=== PATIENT | female | born 1995 | race Caucasian/White ===

== ENCOUNTER 2018-07-06 11:29 | Emergency (ER) | END 2018-07-06 14:53 | disposition home or self-care (01) ==

== ENCOUNTER 2018-08-27 22:31 | Observation (INO) | END 2018-08-29 16:40 | disposition home or self-care (01) ==

== ENCOUNTER 2018-10-01 10:07 | Emergency (ER) | END 2018-10-01 13:04 | disposition home or self-care (01) ==

== ENCOUNTER 2019-03-15 20:39 | Emergency (ER) | payer OTHER ==
[~2019-03-15] VITALS: Ht 149.9 cm; Wt 74.9 kg
[~2019-03-15 20:39] MED LIST: ACET500C5 PO; ACYC400T2 PO; IBUP-1542 PO; ONDA4TAB14 PO
[2019-03-15 20:44] VITALS: Ht 149.9 cm; Wt 74.9 kg
[2019-03-15] MEDS: IBUPROFEN 600 MG TAB PO ONE ×2 (21:31→22:44)
--- NOTE | 2019-03-15 22:05 | ERD ---
ER Documentation Chief Complaint Chief Complaint vaginal bleeding x 2 weeks. denies HPI 24-year-old female presents with complaint of vaginal bleeding for the past 2 weeks. States that she started her period 2 weeks ago as well. In addition she states that her IUD came out on its own this past . This is a second time it has happened. States that she passed a clot today as well. States that she is been having some pelvic cramping as well. Denies any current pelvic cramping. States that she has been through 3 pads today. Denies any lightheadedness, dysuria, back pain, vomiting, fevers. ROS All systems reviewed and are negative except as per history of present illness. Medications Home Meds Active Scripts Medroxyprogesterone Acetate* (Provera*) 10 Mg Tablet, 10 MG PO DAILY for 5 Days, TAB Prov:MARA HOOKS 03/15/19 Ibuprofen* (Motrin*) 600 Mg Tab, 600 MG PO QAM for 6 Days, #30 TAB Prov:MARA HOOKS 03/15/19 Ondansetron (Ondansetron Odt) 4 Mg Tab.rapdis, 4 MG PO Q6H PRN for NAUSEA AND/OR VOMITING, #10 TAB Prov:RAJAN FONTANA PA-C 10/01/18 Acetaminophen* (Tylophen*) 500 Mg Capsule, 1 CAP PO Q6H PRN for PAIN AND OR ELEVATED TEMP, #30 CAP Prov:CYRUS GONZALEZ PA-C 07/06/18 Ibuprofen* (Motrin*) 600 Mg Tab, 600 MG PO Q6, #30 TAB Prov:CYRUS GONZALEZ PA-C 07/06/18 Acyclovir* (Acyclovir*) 400 Mg Tablet, 400 MG PO TID for 7 Days, TAB Prov:LAURITA ALVAREZ NP 04/15/15 Allergies Allergies: Coded Allergies: No Known Allergy (Unverified , 12/16/11) PMhx/Soc History of Surgery: Yes ( X1) Anesthesia Reaction: No Hx Neurological Disorder: No Hx Respiratory Disorders: No Hx Cardiac Disorders: No Hx Psychiatric Problems: No Hx Miscellaneous Medical Probl: No Hx Alcohol Use: No Hx Substance Use: Yes Hx Tobacco Use: No Smoking Status: Never smoker FmHx Family History: No diabetes, No coronary disease, No other Physical Exam Vitals Vital Signs Date Temp Pulse Resp B/P (MAP) Pulse Ox O2 O2 Flow FiO2 Time Delivery Rate 03/15/19 99.2 93 18 125/67 99 20:44 (86) Physical Exam Const: No acute distress Head: Atraumatic Eyes: Normal Conjunctiva ENT: Normal External Ears, Nose and Mouth. Neck: Full range of motion. No meningismus. Resp: Clear to auscultation bilaterally Cardio: Regular rate and rhythm, no murmurs Abd: Soft, non tender, non distended. Normal bowel sounds Skin: No petechiae or rashes Back: No midline or flank tenderness Ext: No cyanosis, or edema Neur: Awake and alert Psych: Normal Mood and Affect Pelvic: No lesions noted to the also vaginal wall. There is no blood noted. os is closed. There are no POC's seen. Result Diagram: 03/15/19219903/15/192199 Results 24 hrs Laboratory Tests Test 03/15/19 21:38 03/15/19 22:00 03/15/19 22:45 03/15/19 23:43 Bedside Urine pH 6.0 (LAB) Bedside Urine Trace Protein (LAB) Bedside Urine Negative Glucose (UA) Bedside Urine Negative Ketones (LAB) Bedside Urine Blood 2+ Bedside Urine Negative Nitrite (LAB) Bedside Urine Negative Leukocyte Esterase (L White Blood Count 8.2 10^3/ul Red Blood Count 4.52 10^6/ul Hemoglobin 14.0 g/dl Hematocrit 41.4 % Mean Corpuscular 91.6 fl Volume Mean Corpuscular 31.0 pg Hemoglobin Mean Corpuscular 33.8 g/dl Hemoglobin Concent Red Cell 12.3 % Distribution Width Platelet Count 284 10^3/UL Mean Platelet 10.1 fl Volume Immature 0.200 % Granulocytes % Neutrophils % 62.1 % Lymphocytes % 30.4 % Monocytes % 6.7 % Eosinophils % 0.4 % Basophils % 0.2 % Nucleated Red Blood 0.0 /100WBC Cells % Immature 0.020 10^3/ul Granulocytes # Neutrophils # 5.1 10^3/ul Lymphocytes # 2.5 10^3/ul Monocytes # 0.6 10^3/ul Eosinophils # 0.0 10^3/ul Basophils # 0.0 10^3/ul Nucleated Red Blood 0.0 10^3/ul Cells # Sodium Level 140 mmol/L Potassium Level 3.8 mmol/L Chloride Level 108 mmol/L Carbon Dioxide 24 mmol/L Level Anion Gap 8 Blood Urea Nitrogen 14 mg/dl Creatinine 0.68 mg/dl Est Glomerular > 60 mL/min Filtrat Rate mL/min Glucose Level 105 mg/dl Calcium Level 9.2 mg/dl Total Bilirubin 0.3 mg/dl Direct Bilirubin 0.00 mg/dl Indirect Bilirubin 0.3 mg/dl Aspartate Amino 19 IU/L Transf (AST/SGOT) Alanine 16 IU/L Aminotransferase (A LT/SGPT) Alkaline 92 IU/L Phosphatase Total Protein 7.9 g/dl Albumin 4.3 g/dl Globulin 3.60 g/dl Albumin/Globulin 1.19 Ratio Prothrombin Time 12.6 Sec Prothrombin Time 1.0 Ratio INR International 0.93 Normalized Ratio Activated 28.7 Sec Partial Thromboplas t Time POC Beta HCG, NEGATIVE Qualitative Current Medications Medications Dose Sig/Ld Start Time Status Last (Trade) Ordered Route PRN Stop Time Admin Dose Reason Admin Ibuprofen 600 mg ONCE ONCE 03/15/19 DC 03/15/19 (Motrin) PO 21:30 22:44 03/15/19 21:31 Procedures/MDM DIAGNOSTIC IMAGING REPORT Patient: KEVAN GRANDA : 1995 Age: 24 Sex: F MR #: [id number] DOS: 03/15/192117 Ordering MD: MARA HOOKS Location: [facility] Room/Bed: PROCEDURE: US Pelvis. CLINICAL INDICATION: Vaginal bleeding, pelvic cramps. COMPARISON: 10/01/2018 pelvic ultrasound. TECHNIQUE: Transabdominal and transvaginal ultrasound of the pelvis was performed. Transvaginal technique was used to better visualize the uterine contents and ovaries. FINDINGS: Uterus: The uterus measures 7.3 x 3.5 x 5.3 cm. The endometrial echo complex is normal and measures 6 mm. Ovaries/adnexa: The right ovary is not visualized. The left ovary measures 2.8 x 2.3 x 2.7 cm. A cyst is visualized within the left ovary measuring 1.3 x 1.9 x 2.0 cm, most likely physiologic. No adnexal mass is visualized. No abnormal pelvic fluid seen. IMPRESSION: Unremarkable appearance of the uterus and left ovary. The right ovary is not visualized. No free fluid. RPTAT: HEUY Physician jessica Date Time Electronically viewed and signed by owen chen Physician on 03/15/2019 23:01 ry/ CC: MARA HOOKS [id number] MDM: All patient's labs and imaging were within normal limits. Patient possibly had missed however the hCG was negative. This point I have low suspicion for symptomatic anemia, hemorrhage, ovarian torsion, tubo-ovarian abscess, acute space infection, appendicitis, or any other emergent condition. Patient given 5-day course of Provera as well as ibuprofen to take once a day. Patient advised to follow-up with her OB. Patient discharged with strict ER precautions. Patient advised to follow up with PMD. All questions answered at discharge. Departure Diagnosis: Primary Impression: Vaginal bleeding Condition: Stable MARA HOOKS March 15, 2019 22:05
[2019-03-15] MEDS ORDERED: IBUP-1542 PO (23:57)
[2019-03-15] MEDS ORDERED: MEDR10TA2 PO (23:57)
[2019-03-16 00:35] VITALS: BP 125/67; PULSE 78; RESP 16
== END 2019-03-16 00:37 | disposition home or self-care (01) ==
LOC: FTE 20:39
DX: N93.8 Other specified abnormal uterine and vaginal bleeding (principal); R10.2 Pelvic and perineal pain
CPT/HCPCS: 76830; 76856; 80053; 81003; 81025; 85025; 85610; 85730; Z7502

== ENCOUNTER 2019-04-18 05:12 | Emergency (ER) | payer OTHER ==
[~2019-04-18] VITALS: Ht 149.9 cm; Wt 72.7 kg
[~2019-04-18 05:12] MED LIST changes: +MEDR10TA2 PO
[2019-04-18 05:18] VITALS: RESP 20; Ht 149.9 cm; Wt 72.7 kg
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
[2019-04-18] MEDS ORDERED: morphine 4 MG/ML VIAL IM STA (05:57)
[2019-04-18] MEDS ORDERED: ONDANSETRON (ODT) 4 MG TAB ODT STA (05:57)
[2019-04-18] MEDS ORDERED: DIPHTH/TET/ACEL PERTUSS (ADULT) 0.5 ML VIAL IM* ONE (06:00)
[2019-04-18] MEDS ORDERED: IBUP800T48 PO (08:14)
[2019-04-18] MEDS ORDERED: TRAM50TA2 PO (08:14)
[2019-04-18 08:50] VITALS: BP 101/60; PULSE 97
== END 2019-04-18 08:51 | disposition home or self-care (01) ==
LOC: FTE 05:12
DX: S80.11XA Contusion of right lower leg, initial encounter (principal); W18.39XA Other fall on same level, initial encounter; Y92.9 Unspecified place or not applicable; Z23 Encounter for immunization; Z87.891 Personal history of nicotine dependence
CPT/HCPCS: 72170; 73550; 73562; 73590; 73600; 73630; 81025; 90471; 90715; 96372; J2270; Z7502; Z7610